=== PATIENT | female | born 1945 | race Caucasian/White ===

== ENCOUNTER 2016-07-31 07:39 | Day surgery (SDC) | payer MEDICARE ==
[~2016-07-31 07:39] MED LIST: ANTIVERT12.5 MG PO; ANTIVERT25 MG PO; ATENOLOL25 MG PO; AUGMENTIN500TAB PO; CETIRIZ/PSE1 TAB PO; CIPROFLOXACN250 M1 PO; CIPROFLOXACN250 MG PO; CLOTRIM/BETA EX; CYANOCOBALAM1000 MC1 IM; DIFLUCAN100 M1 PO; DIFLUCAN100 MG PO; DYAZIDE1 CAP; DYAZIDE1 CAP PO; ESOMEPRAZOLE MA40 MG PO; FLUARIX QUADRIV1 IN2 IM; FLUARIX QUADRIV1 INJ IM; FLUZONE SPLT1 M1 IM; GLIPIZIDE5 MG PO; IMDUR30 MG PO; ISOSORBIDE MONO30 MG PO; LORTAB 7.5 PO; LORTAB 7.5-3251 TAB PO; LORTAB 7.57.5 MG PO; MAXZIDE-2537.5 MG/TA PO; MECLIZINE25 MG PO; MELOXICAM7.5 MG PO; METFORMIN500 MG PO; MOBIC7.5 MG PO; MULTI VIT PO; NEXIUM40 M1 PO; PNEUMOVAX 23 IM; PRAVASTATIN SOD40 MG PO; PREVNAR 13 IM; PRILOSEC20 MG PO; REFRESH TEARS0.5 % OU; ROBITUSSIN AC10 ML PO; TAM75CAP PO; TESSALON PER100 MG PO; TIZANIDINE4 MG PO; TRAMADOL HCL50 MG PO; TYLENOL 500MG TAB PO; ZPAK PO
[2016-07-31 10:24] VITALS: BP 120/53
== END 2016-07-31 10:35 | disposition home or self-care (01) ==
LOC: ENDO 07:39 → ORM 10:40 → ENDO 11:00
PROVIDERS: ATTEND Internal Medicine Gastroenterology
PROC: 0DB48ZX Excision of Esophagogastric Junction, Via Natural or Artificial Opening Endoscopic, Diagnostic (ICD-10-PCS; principal; 2016-07-31)
PROC: 0DB68ZX Excision of Stomach, Via Natural or Artificial Opening Endoscopic, Diagnostic (ICD-10-PCS; 2016-07-31)
DX: K21.9 Gastro-esophageal reflux disease without esophagitis (principal); R07.9 Chest pain, unspecified; K29.70 Gastritis, unspecified, without bleeding; K31.7 Polyp of stomach and duodenum; E11.9 Type 2 diabetes mellitus without complications; E78.00 Pure hypercholesterolemia, unspecified

== ENCOUNTER 2017-12-14 12:10 | Inpatient (IN) | payer MEDICARE ==
[~2017-12-14] VITALS: Ht 152.4 cm; Wt 68.5 kg
[2017-12-14] MEDS ORDERED: FUROSEMIDE20 MG PO (13:59)
[2017-12-14] MEDS ORDERED: FOLIC ACID1 MG PO (14:00)
[2017-12-14] MEDS ORDERED: RHEUMATREX2.5 M1 PO (14:00)
[2017-12-14] MEDS ORDERED: RESTASIS0.05 % OU (14:01)
[2017-12-14] MEDS ORDERED: SYSTANE BAL OU (14:01)
[2017-12-14] MEDS ORDERED: METFORMIN500 MG PO (14:02)
[2017-12-14] MEDS ORDERED: ACTOS30 MG PO (14:02)
[2017-12-17] VITALS (8 sets, daily range): BP systolic 124–145; BP diastolic 50–64
--- NOTE | 2017-12-17 11:30 | NUR ---
PT BROUGHT TO FLOOR IN BED BY OR NURSES X2. NO SIGNS OF DISTRESS NOTED, RESP EVEN AND UNLABORED. PT ALERT AND ORIENTED X3, 02 2L NC, SCD'S ON, IVF INFUSING. DISCUSSED POC, PT HAS A SLING TO R SHOULDER DRESSING CDI. ICE PACK REMOVED AT 1120 WILL CONTINUE TO REPLACE 20MIN ON 20MIN OFF. ORIENTED TO ROOM AND CALL LIGHT. IS BROUGHT TO BEDSIDE. ASSESSMENT COMPLETED CALL LIGHT IN REACH,CONTINUE TO MONITOR.
--- NOTE | 2017-12-17 15:00 | NUR ---
PT RESTING IN BED, NO SIGNS OF DISTRESS NOTED, RESP EVEN AND UNLABORED. PT MEDICATED FOR PAIN, PT STATES SHE FEELS NO PAIN AT THIS TIME. CALL LIGHT IN REACH,CONTINUE TO MONITOR.
--- NOTE | 2017-12-17 16:36 | NUR ---
PT ASSISTED TO BATHROOM, PT AMBULATED WITH STEADY GAIT. ONCE BACK IN BED, PT EDUCATED AND DEMONSTRATED USE OF IS TOTAL VOLUME AT THIS TIME 750ML TOLERATED WELL. CALL LIGHT IN REACH,CONTINUE TO MONITOR.
--- NOTE | 2017-12-17 18:31 | NUR ---
ASSISTED PT TO BATHROOM, NO SIGNS OF DISTRESS NOTED, RESP EVEN AND UNLABORED. PT VOICES NO NEEDS OR COMPLAINTS AT THIS TIME. CALL LIGHT IN REACH,CONTINUE TO MONITOR.
--- NOTE | 2017-12-17 19:45 | NUR ---
PATIENT RESTING IN BED WITH RIGHT ARM IN SLING. HOB ELEVATED FOR COMFORT. AWAKE ALERT AND ORIENTEDX3. VISITOR AT BEDSIDE. PATIENT C/O RIGHT SHOULDER PAIN-MEDICATED WITH PERCOCET TABS 2. DRESSING TO RIGHT SHOULDER IS CDI. USE ICE PACKS TO AFFECTED AREA FOR 20MINUTES THEN OFF. CMS TO RIGHT FINGERS WNL-STATES THAT THE SENSATION IS RETURNING. SCD'S IN PLACE TO BLE. IVF D5LR PATENT AND INFUSING VIA LEFT FOREARM SITE AT 100CC/HR. SITE APPEARS HEALTHY. ENCOURAGED USE OF IS Q1H WHILE AWAKE FOR REPS OF 10-DEMONSTRATES ABILITY TO USE CORRECTLY. SAFETY PRECAUTIONS REINFORCED.CALL LIGHT IN REACH. WILL CONT TO MONITOR.
--- NOTE | 2017-12-17 21:30 | NUR ---
PATIENT STATES LITTLE OR NO RELIEF FROM PERCOCETS GIVEN EARLIER. MEDICATED FOR POST-0P PAIN TO RIGHT SHOULDER WITH DILAUDID 1MG IVP. PATIENT VOIDING QS YELLOW URINE. CALL LIGHT IN REACH. WILL CONT TO MONITOR.
[2017-12-18 00:24] VITALS: BP 123/55
--- NOTE | 2017-12-18 01:24 | NUR ---
PATIENT APPEARS SLEEPING AT THIS TIME. ANCEF HUNG ORDERED. CALL LIGHT IN REACH. WILL CONT TO MONITOR.
--- NOTE | 2017-12-18 04:06 | NUR ---
PATIENT MEDICATED FOR PAIN EARLIER WITH PERCOCET TABS 2 FOR PAOST-OP PAIN., APPEARS SLEEPING AT THIS TIME. CALL LIGHT IN REACH. WILL CONT TO MONITOR.
[2017-12-18 04:38] VITALS: BP 123/59
[2017-12-18 04:41] VITALS: BP 167/93
--- NOTE | 2017-12-18 05:10 | NUR ---
IV SITE CONVERTED TO SALINE LOCK-SITE REMAINS HEALTHY. CALL LIGHT IN REACH. WILL CONT TO MONITOR.
[2017-12-18 05:37] LABS: IMMATURE GRANULOCYTES 0.7 % (0.0-5.0); MEAN CELL VOLUME 92.3 fL CALC (80.0-100.0); MEAN CORPUSCULAR HGB 29.4 pG CALC (26.0-32.0); MEAN CORPUSCULAR HGB CONC 31.9 g/L CALC (32.0-36.0); NEUT# 9.98 thou/uL (2.00-7.15); RED BLOOD COUNT 3.91 mill/uL (4.20-5.60); RED CELL DISTRI WIDTH 14.8 % (11.5-15.5)
[2017-12-18 05:38] LABS: HEMATOCRIT 36.1 % (37.0-47.0); HEMATOCRIT 36.4 % (37.0-47.0); HEMOGLOBIN 11.5 g/dl (12.0-16.0); HEMOGLOBIN 11.6 g/dl (12.0-16.0)
[2017-12-18 05:44] LABS: ALKALINE PHOSPHATASE 58 u/l (38-126); ANION GAP 15 (6-22 (CALC)); BILIRUBIN, TOTAL 0.2 mg/dL (0.0-1.4); BUN 16 mg/dL (8-23); BUN/CREATININE RATIO 22 (12-20 (CALC)); CARBON DIOXIDE 24 mmol/l (22-30); CHLORIDE 107 mmol/l (95-108); CREATININE 0.7 mg/dL (0.5-1.0); GFR > 60 ML/MIN (>=60 (CALC)); GFR FOR AFR.AMER. > 60 ML/MIN (>=60 (CALC)); POTASSIUM 4.4 mmol/l (3.5-5.1); SGOT/AST 29 u/l (9-36); SGPT/ALT 36 u/l (11-66); SODIUM 141 mmol/l (137-146)
[2017-12-18 05:47] LABS: ALBUMIN 3.3 g/dL (3.2-5.0); TOTAL PROTEIN 5.6 g/dL (6.3-8.2)
--- NOTE | 2017-12-18 07:00 | NUR ---
BEDSIDE REPORT RECEIVED BY SHARA. PT IS RESTING IN BED WITH NO S/S OF DISTRESS NOTED. CALL LIGHT IN REACH.
[2017-12-18 07:32] VITALS: BP 122/57
--- NOTE | 2017-12-18 08:41 | NUR ---
MEDICATED PT WITH DILAUDID FOR PAIN. ASSESSMENT DONE . RESPS EVEN AND UNLABORED. ENCOURAGE PT TO USE INCENTIVE SPIROMETRY PT VERBALIZED UNDERSTANDING. SCD IN PLACE. RIGHT SHOULDER DRESSING DCDI. SAFETY PRECAUTIONS REINFORCED AND CALL LIGHT IN REACH.
--- NOTE | 2017-12-18 11:57 | NUR ---
PT HAS COLD PACK IN PLACE FOR RIGHT SHOULDER. PT STATED PAIN IS 3/10, BUT DENIES PAIN MEDICATION AT THIS TIME . ASSISTED PT TO THE RECLINER AND SETUP PT FOR LUNCH. PT SISTER IN ROOM. CALL LIGHT IN REACH.
[2017-12-18 15:46] VITALS: BP 131/58
--- NOTE | 2017-12-18 16:00 | NUR ---
PT IS RESTING IN BED WITH NO S/S OF DISTRESS NOTED. CALL LIGHT IN REACH.
--- NOTE | 2017-12-18 19:34 | NUR ---
PATIENT SITTING UP IN THE RECLINER WITH VISITOR AT BEDSIDE. AWAKE ALERT AND ORIENTEDX3. STATES THAT SHE IS STILL HAVING POST-OP PAIN AND THAT THE ZOFRAN DID HELP WITH NAUSEA. RIGHT SHOULDER DRESSING IS CDI AT THIS TIME. CMS TO RIGHT FINGERS WNL. SLING IS INTACT. SALINE LOCK TO LEFT FOREARM INTACT AND APPEARS HEALTHY AT THIS TIME. ENCOURAGED USE OF IS AND DEMONSTRATES PROPER USE OF THIS DEVICE. SAFETY PRECAUTIONS REINFORCED.CALL LIGHT IN REACH, WILL CNT TO MONITOR.
[2017-12-18 20:19] VITALS: BP 155/66
--- NOTE | 2017-12-18 21:21 | NUR ---
PATIENT ASKING FOR SLEEPING MEDS-CALL TO DR. GUO AND ORDERS RECIEVED. PATIENT MEDICATED FOR PAIN WITH PERCOCET FOR POST-OP PAIN TO RIGHT SHOULDER-6/10 ON PAIN SCALE AND WITH RESTORIL 15MG PO FOR SLEEP. PATIENT REFUSED MOM TONIGHT BUT DID TAKE SURFAK 1 CAP PO ORDERED. ABD IS SOFT WITH BS ACTIVE. CMS TO RIGHT FINGERS REMAINS WNL. SLING REMAINS IN PLACE TO RIGHT ARM. SAFETY PRECAUTIONS REINFORCED. CALL LIGHT IN REACH. WILL CONT TO MONITOR.
--- NOTE | 2017-12-18 23:00 | NUR ---
PATIENT STATES NO RELIEF FROM PERCOCET. MEDICATED FOR POST-OP RIGHT SHOULDER PAIN WITH DILAUDID 1MG IVP VIA LEFT FOREARM IV SITE. CALL LIGHT IN REACH. WILL CONT TO MONITOR.
[2017-12-19] VITALS (7 sets, daily range): BP systolic 109–176; BP diastolic 58–77
--- NOTE | 2017-12-19 03:55 | NUR ---
APPEARS SLEEPING AT THIS TIME. CALL LIGHT IN REACH. WILL CONT TO MONITOR.
[2017-12-19 04:56] LABS: HEMATOCRIT 35.9 % (37.0-47.0); HEMOGLOBIN 11.4 g/dl (12.0-16.0); IMMATURE GRANULOCYTES 0.5 % (0.0-5.0); MEAN CELL VOLUME 91.8 fL CALC (80.0-100.0); MEAN CORPUSCULAR HGB 29.2 pG CALC (26.0-32.0); MEAN CORPUSCULAR HGB CONC 31.8 g/L CALC (32.0-36.0); NEUT# 6.13 thou/uL (2.00-7.15); RED BLOOD COUNT 3.91 mill/uL (4.20-5.60); RED CELL DISTRI WIDTH 15.2 % (11.5-15.5)
[2017-12-19 05:19] LABS: ANION GAP 13 (6-22 (CALC)); BUN 14 mg/dL (8-23); BUN/CREATININE RATIO 21 (12-20 (CALC)); CARBON DIOXIDE 28 mmol/l (22-30); CHLORIDE 103 mmol/l (95-108); CREATININE 0.7 mg/dL (0.5-1.0); GFR > 60 ML/MIN (>=60 (CALC)); GFR FOR AFR.AMER. > 60 ML/MIN (>=60 (CALC)); POTASSIUM 3.7 mmol/l (3.5-5.1); SODIUM 139 mmol/l (137-146)
--- NOTE | 2017-12-19 06:07 | NUR ---
PATIENT RESTING IN BED WITH HOB ELEVATED. RIGHT ARM REMAINS IN SLING. CMS TO RIGHT FINGERS WNL. PATIENT C/O POST-OP RIGHT SHOULDER PAIN-MEDICATED WITH PERCOCET 10/325MG TABS 2 PO. CALL LIGHT IN REACH. WILL CONT TO MONITOR.
--- NOTE | 2017-12-19 07:04 | NUR ---
REPORT RECEIVED BY SHARA. PT IS SLEEPING IN BED WITH NO S/S OF DISTRESS NOTED. CALL LIGHT IN REACH.
--- NOTE | 2017-12-19 08:05 | NUR ---
ASSISTED PT TO THE RECLINER AND PT TOLERATED WELL. ASSESSMENT DONE . RESPS EVEN AND UNLABORED. PT STATED PAIN RIGHT SHOULDER 3/10 BUT DENIES PAIN MEDS AT THIS TIME. SLING IN PLACE FOR RIGHT SHOULDER AND DRESSING IS CDI. #20 LFA. SAFETY PRECAUTIONS REINFORCED AND CALL LIGHT IN REACH.
--- NOTE | 2017-12-19 12:05 | NUR ---
PT IS SITTING IN RECLINER . MEDICATED PT WITH PERCOCET FOR PAIN SEE EMAR. PT DENIES ANY OTHER NEEDS AT THIS TIME. CALL LIGHT IN REACH. FAMILY MEMBER IN ROOM.
--- NOTE | 2017-12-19 16:00 | NUR ---
PT IS RESTING IN BED. PT DENIES NEEDS AT THIS TIME. CALL LIGHT IN REACH.
--- NOTE | 2017-12-19 19:10 | NUR ---
PT IS IN BED WATCHING TV WITH LIGHTS OUT. NO S/S OF DISTRESS NOTED AT THIS TIME. CALL LIGHT AT BEDSIDE.
[2017-12-20 00:24] VITALS: BP 148/66
--- NOTE | 2017-12-20 00:30 | NUR ---
PT ASSISTED TO RESTROOM AND REPOSITIONED IN BED. PT HAS BEEN MEDICATED ORDERS PROVIDE AND ASSISTED W/PO FLUIDS. DENIES ANY OTHER NEEDS AT THIS TIME. CALL LIGHT W/IN REACH
--- NOTE | 2017-12-20 04:06 | NUR ---
PT BP ELEVATED, NOTIFIED /ORDERS RECEIVED. WILL CONTINUE TO MONITOR AND MEDICATE NEEDED AND ORDERS PROVIDE. PT DENIES ANY CHEST OR HEAD PAIN AND HAS BEEN MEDICATED FOR SHOULDER PAIN OF RIGHT SIDE. SURGICAL INCISION IS CDI AT THIS TIME AND RIGHT ARM IS IN SLING. PT AMBULATED TO RESTROOM AND BACK TO BED. FULL ASSESSMENT COMPLETED. LUNG SOUNDS WERE DIMINISHED, DISCUSSED IS USE TO PT. SCD'S ARE IN PLACE AND RUNNING.
[2017-12-20 05:12] VITALS: BP 146/65
--- NOTE | 2017-12-20 06:53 | NUR ---
PT MEDICATED FOR PAIN 6/10 IN R SHOULDER.
[2017-12-20 07:59] LABS: HEMATOCRIT 40.9 % (37.0-47.0); HEMOGLOBIN 13.2 g/dl (12.0-16.0); IMMATURE GRANULOCYTES 0.4 % (0.0-5.0); MEAN CELL VOLUME 91.5 fL CALC (80.0-100.0); MEAN CORPUSCULAR HGB 29.5 pG CALC (26.0-32.0); MEAN CORPUSCULAR HGB CONC 32.3 g/L CALC (32.0-36.0); NEUT# 7.63 thou/uL (2.00-7.15); RED BLOOD COUNT 4.47 mill/uL (4.20-5.60); RED CELL DISTRI WIDTH 14.8 % (11.5-15.5)
[2017-12-20 08:27] LABS: ANION GAP 11 (6-22 (CALC)); BUN 11 mg/dL (8-23); BUN/CREATININE RATIO 18 (12-20 (CALC)); CARBON DIOXIDE 32 mmol/l (22-30); CHLORIDE 100 mmol/l (95-108); CREATININE 0.6 mg/dL (0.5-1.0); GFR > 60 ML/MIN (>=60 (CALC)); GFR FOR AFR.AMER. > 60 ML/MIN (>=60 (CALC)); POTASSIUM 3.9 mmol/l (3.5-5.1); SODIUM 138 mmol/l (137-146)
[2017-12-20 08:30] VITALS: BP 157/56
--- NOTE | 2017-12-20 08:30 | NUR ---
ASSESSMENT IS COMPLETED: IV SITE IS FREE FROM REDNESS OR EDEMA. HR IS REG, PULSES ARE STRONG X4, ABD IS SOFT WITH ACTIVE BS. BREATH SOUNDS ARE CLEAR, BILATERALLY, NO C/O SOB, R ARM DRESSING IS CDI. SLING IN PLACE. IN TO VISIT WITH PT. WILL DISCHARGE TODAY.
[2017-12-20 09:49] VITALS: BP 157/56
--- NOTE | 2017-12-20 12:42 | NUR ---
DISCHARGE INSTRUCTIONS GIVEN TO PT AND FAMILY. NO DISTRESS NOTED. WILL GO HOME WITH A GOWN. IV SITE IS DISCONTINUED CATHETER INTACT, NO REDNESS OR EDEMA. CONTINUE TO OSBERVE AND MONITOR. Discharge instructions given. Patient verbalizes understanding of same. Discharged in stable condition via Wheelchair to Home with family. All belongings sent with pt.[facility].
== END 2017-12-20 12:44 | DRG 483 ==
LOC: MS2 12-17 06:29
PROVIDERS: ADMIT Internal Medicine Geriatric Medicine
PROC: 0RRJ00Z Replacement of Right Shoulder Joint with Reverse Ball and Socket Synthetic Substitute, Open Approach (ICD-10-PCS; principal; 2017-12-17)
PROC: 0LS30ZZ Reposition Right Upper Arm Tendon, Open Approach (ICD-10-PCS; 2017-12-17)
DX: M19.011 Primary osteoarthritis, right shoulder (principal); M75.121 Complete rotator cuff tear or rupture of right shoulder, not specified as traumatic; M75.21 Bicipital tendinitis, right shoulder; E11.9 Type 2 diabetes mellitus without complications; I10 Essential (primary) hypertension; I25.10 Atherosclerotic heart disease of native coronary artery without angina pectoris; E78.5 Hyperlipidemia, unspecified; K21.9 Gastro-esophageal reflux disease without esophagitis; E03.9 Hypothyroidism, unspecified; F41.1 Generalized anxiety disorder; K27.9 Peptic ulcer, site unspecified, unspecified as acute or chronic, without hemorrhage or perforation; K59.00 Constipation, unspecified

== ENCOUNTER → 2018-06-16 | Outpatient (REF) | payer MEDICARE ==
[~2018-06-16] MED LIST changes: +ACTOS30 MG PO; +FOLIC ACID1 MG PO; +FUROSEMIDE20 MG PO; +RESTASIS0.05 % OU; +RHEUMATREX2.5 M1 PO; +SYSTANE BAL OU
[2018-06-16 14:30] LABS: ALBUMIN 4.6 g/dL (3.2-5.0); ALKALINE PHOSPHATASE 86 u/l (38-126); ANION GAP 15 (6-22 (CALC)); BILIRUBIN, TOTAL 0.6 mg/dL (0.0-1.4); BUN 17 mg/dL (8-23); BUN/CREATININE RATIO 28 (12-20 (CALC)); CARBON DIOXIDE 28 mmol/l (22-30); CHLORIDE 103 mmol/l (95-108); CREATININE 0.6 mg/dL (0.5-1.0); GFR > 60 ML/MIN (>=60 (CALC)); GFR FOR AFR.AMER. > 60 ML/MIN (>=60 (CALC)); POTASSIUM 4.6 mmol/l (3.5-5.1); SGOT/AST 33 u/l (9-36); SODIUM 142 mmol/l (137-146); TOTAL PROTEIN 7.2 g/dL (6.3-8.2)
== END | disposition home or self-care (01) ==
LOC: LAB 13:13
PROVIDERS: ATTEND Internal Medicine Gastroenterology
DX: K76.89 Other specified diseases of liver (principal); K21.9 Gastro-esophageal reflux disease without esophagitis; K57.90 Diverticulosis of intestine, part unspecified, without perforation or abscess without bleeding; R93.5 Abnormal findings on diagnostic imaging of other abdominal regions, including retroperitoneum

== ENCOUNTER → 2018-06-17 | Outpatient (REF) | payer MEDICARE | END | disposition home or self-care (01) | LOC: ULTRASND 07:25 | PROVIDERS: ATTEND Internal Medicine Gastroenterology | DX: K76.89 Other specified diseases of liver (principal); K21.9 Gastro-esophageal reflux disease without esophagitis; K57.90 Diverticulosis of intestine, part unspecified, without perforation or abscess without bleeding ==

== ENCOUNTER → 2018-06-25 | Outpatient (REF) | payer MEDICARE ==
[2018-06-25 08:43] LABS: HEMATOCRIT 45.1 % (37.0-47.0); IMMATURE GRANULOCYTES 0.4 % (0.0-5.0); MEAN CELL VOLUME 91.9 fL CALC (80.0-100.0); MEAN CORPUSCULAR HGB 28.5 pG CALC (26.0-32.0); NEUT# 3.06 thou/uL (2.00-7.15); RED BLOOD COUNT 4.91 mill/uL (4.20-5.60); RED CELL DISTRI WIDTH 15.5 % (11.5-15.5)
[2018-06-25 08:57] LABS: ALBUMIN 4.4 g/dL (3.2-5.0); ALKALINE PHOSPHATASE 82 u/l (38-126); ANION GAP 16 (6-22 (CALC)); BILIRUBIN, TOTAL 0.7 mg/dL (0.0-1.4); BUN 18 mg/dL (8-23); BUN/CREATININE RATIO 30 (12-20 (CALC)); CALCULATED LDLCHOLESTEROL 84 mg/dL (62-129 (CALC)); CARBON DIOXIDE 25 mmol/l (22-30); CHLORIDE 105 mmol/l (95-108); CHOLESTEROL HDL RATIO 2.1 (<4.4 (CALC)); CREATININE 0.6 mg/dL (0.5-1.0); GFR > 60 ML/MIN (>=60 (CALC)); GFR FOR AFR.AMER. > 60 ML/MIN (>=60 (CALC)); HDL CHOLESTEROL 99 mg/dL (>=40); POTASSIUM 3.8 mmol/l (3.5-5.1); SGOT/AST 25 u/l (9-36); SODIUM 142 mmol/l (137-146); TOTAL CHOLESTEROL 204 mg/dl (0-199); TOTAL PROTEIN 7.2 g/dL (6.3-8.2); TRIGLYCERIDES REFLEX TO dLDL 103 mg/dl (30-149); VLDL CHOLESTROL 21 mg/dl (0-48 (CALC))
== END | disposition home or self-care (01) ==
LOC: LAB 07:46
PROVIDERS: ATTEND Internal Medicine Geriatric Medicine
DX: I10 Essential (primary) hypertension (principal); E78.5 Hyperlipidemia, unspecified; E11.9 Type 2 diabetes mellitus without complications

== ENCOUNTER → 2018-07-01 | Outpatient (REF) | payer MEDICARE | END | disposition home or self-care (01) | LOC: LAB 12:03 | PROVIDERS: ATTEND Nurse Practitioner Family | DX: E11.9 Type 2 diabetes mellitus without complications (principal); I10 Essential (primary) hypertension; R53.81 Other malaise ==

== ENCOUNTER 2018-12-26 13:18 | Emergency (ER) | payer MEDICARE ==
[~2018-12-26] VITALS: Ht 152.4 cm; Wt 65.0 kg
[2018-12-26 14:18] LABS: ALBUMIN 4.6 g/dL (3.2-5.0); ALKALINE PHOSPHATASE 89 u/l (38-126); ANION GAP 14 (6-22 (CALC)); BILIRUBIN, TOTAL 0.6 mg/dL (0.0-1.4); BUN 18 mg/dL (8-23); BUN/CREATININE RATIO 28 (12-20 (CALC)); CARBON DIOXIDE 28 mmol/l (22-30); CHLORIDE 104 mmol/l (95-108); CREATININE 0.7 mg/dL (0.5-1.0); GFR > 60 ML/MIN (>=60 (CALC)); GFR FOR AFR.AMER. > 60 ML/MIN (>=60 (CALC)); POTASSIUM 4.1 mmol/l (3.5-5.1); SGOT/AST 24 u/l (9-36); SODIUM 141 mmol/l (137-146); TOTAL PROTEIN 7.4 g/dL (6.3-8.2)
[2018-12-26 14:30] LABS: MYOGLOBIN 33 ng/mL (0 - 62)
[2018-12-26] MEDS ORDERED: VITAMIN C500 MG PO (14:31)
[2018-12-26] MEDS ORDERED: VITAMIN D1000 UNI1 PO (14:32)
[2018-12-26] MEDS ORDERED: FISH OIL1200 M2 PO (14:32)
[2018-12-26 14:42] LABS: HEMATOCRIT 42.9 % (37.0-47.0); HEMOGLOBIN 13.1 g/dl (12.0-16.0); IMMATURE GRANULOCYTES 0.3 % (0.0-5.0); MEAN CELL VOLUME 88.3 fL CALC (80.0-100.0); MEAN CORPUSCULAR HGB CONC 30.5 g/L CALC (32.0-36.0); NEUT# 4.81 thou/uL (2.00-7.15); RED BLOOD COUNT 4.86 mill/uL (4.20-5.60); RED CELL DISTRI WIDTH 16.6 % (11.5-15.5)
[2018-12-26 15:02] LABS: URINE BILIRUBIN - DIPSTICK NEGATIVE (NEGATIVE); URINE BLOOD DIPSTICK SMALL (NEGATIVE); URINE COLOR YELLOW; URINE GLUCOSE - DIPSTICK NEGATIVE (NEGATIVE); URINE KETONE NEGATIVE (NEGATIVE); URINE LEUK ESTERASE NEGATIVE (NEGATIVE); URINE NITRITE - DIPSTICK NEGATIVE (Negative); URINE PROTEIN - DIPSTICK NEGATIVE (NEG-TRACE); URINE UROBILINOGEN - DIPSTICK 0.2 E.U./dL (0.2)
[2018-12-26 15:11] LABS: URINE SQUAMOUS EPITHELIAL CELL FEW EPI/hpf (0-FEW); URINE WBC 0-2 WBC/hpf (0-5)
[2018-12-26 15:23] VITALS: BP 162/67
== END 2018-12-26 15:22 | disposition left against medical advice (07) ==
LOC: ED 13:18 → ED-I 14:58 → ED 15:22
PROVIDERS: Emergency Medicine
DX: R07.9 Chest pain, unspecified (principal); E11.9 Type 2 diabetes mellitus without complications; Z79.84 Long term (current) use of oral hypoglycemic drugs; Z91.19 Patient's noncompliance with other medical treatment and regimen; R06.02 Shortness of breath

== ENCOUNTER 2019-03-03 07:10 | Day surgery (SDC) | payer MEDICARE ==
[~2019-03-03 07:10] MED LIST changes: +FISH OIL1200 M2 PO; +HYDROCO/APAP1 T13 PO; +VITAMIN C500 MG PO; +VITAMIN D1000 UNI1 PO
[2019-03-03 10:29] VITALS: BP 159/70
== END 2019-03-03 10:27 | disposition home or self-care (01) ==
LOC: ENDO 07:10 → ORM 10:00 → ENDO 10:00
PROVIDERS: ATTEND Internal Medicine Gastroenterology
PROC: 0DBK8ZX Excision of Ascending Colon, Via Natural or Artificial Opening Endoscopic, Diagnostic (ICD-10-PCS; principal; 2019-03-03)
DX: K57.30 Diverticulosis of large intestine without perforation or abscess without bleeding (principal); K63.5 Polyp of colon; K64.4 Residual hemorrhoidal skin tags; K76.89 Other specified diseases of liver; K21.9 Gastro-esophageal reflux disease without esophagitis; K29.70 Gastritis, unspecified, without bleeding; K31.7 Polyp of stomach and duodenum; E11.9 Type 2 diabetes mellitus without complications; Z86.010 Personal history of colon polyps; Z79.84 Long term (current) use of oral hypoglycemic drugs

== ENCOUNTER 2019-09-19 15:00 | Emergency (ER) | payer MEDICARE ==
[~2019-09-19 15:00] MED LIST changes: -SYSTANE BAL OU; +SYSTANE ULTRA OU; -TYLENOL 500MG TAB PO; +TYLENOL500 MG PO
[2019-09-19] MEDS ORDERED: METFORMIN500 M2 PO (15:28)
[2019-09-19 15:29] LABS: HEMOGLOBIN 12.3 g/dl (12.0-16.0); IMMATURE GRANULOCYTES 0.4 % (0.0-5.0); MEAN CELL VOLUME 84.9 fL CALC (80.0-100.0); MEAN CORPUSCULAR HGB 25.5 pG CALC (26.0-32.0); NEUT# 4.77 thou/uL (2.00-7.15); RED BLOOD COUNT 4.83 mill/uL (4.20-5.60); RED CELL DISTRI WIDTH 16.2 % (11.5-15.5)
[2019-09-19] MEDS ORDERED: OMEPRAZOLE DR20 MG PO (15:29)
[2019-09-19] MEDS ORDERED: PRAVASTATIN40 MG PO (15:30)
[2019-09-19] MEDS ORDERED: MECLIZINE12.5 M1 PO (15:31)
[2019-09-19] MEDS ORDERED: HYDROCODONE/ACE1 TAB PO (15:32)
[2019-09-19] MEDS ORDERED: VITAMI16 PO (15:36)
[2019-09-19] MEDS ORDERED: VITAMIN D1000 UNI2 PO (15:37)
[2019-09-19 15:42] LABS: ALBUMIN 4.2 g/dL (3.2-5.0); ALKALINE PHOSPHATASE 82 u/l (38-126); ANION GAP 13 (6-22 (CALC)); BILIRUBIN, TOTAL 0.6 mg/dL (0.0-1.4); BUN 21 mg/dL (8-23); BUN/CREATININE RATIO 28 (12-20 (CALC)); CHLORIDE 108 mmol/l (95-108); CREATININE 0.7 mg/dL (0.5-1.0); GFR > 60 ML/MIN (>=60 (CALC)); GFR FOR AFR.AMER. > 60 ML/MIN (>=60 (CALC)); LIPASE 70 u/l (23-300); POTASSIUM 3.9 mmol/l (3.5-5.1); SGOT/AST 28 u/l (9-36); SODIUM 138 mmol/l (137-146); TOTAL PROTEIN 7.6 g/dL (6.3-8.2)
[2019-09-19 15:59] LABS: CARBON DIOXIDE 21 mmol/l (22-30)
[2019-09-19 16:13] VITALS: BP 155/72
== END 2019-09-19 16:14 | disposition short-term general hospital (02) ==
LOC: ED 15:00
PROVIDERS: Family Medicine
DX: I44.1 Atrioventricular block, second degree (principal); E11.9 Type 2 diabetes mellitus without complications; I10 Essential (primary) hypertension; Z79.84 Long term (current) use of oral hypoglycemic drugs

== ENCOUNTER 2022-12-28 07:17 | Emergency (ER) | payer MEDICARE ==
[~2022-12-28] VITALS: Ht 152.4 cm; Wt 56.2 kg
[2022-12-28] VITALS (8 sets, daily range): BP systolic 135–160; BP diastolic 62–84
[~2022-12-28 07:17] MED LIST changes: +HYDROCODONE/ACE1 TAB PO; +MECLIZINE12.5 M1 PO; +METFORMIN500 M2 PO; +OMEPRAZOLE DR20 MG PO; +PRAVASTATIN40 MG PO; +VITAMI16 PO; +VITAMIN D1000 UNI2 PO
[2022-12-28] MEDS ORDERED: MEDROL DOSEPAK4 MG PO (09:34)
[2022-12-28] MEDS ORDERED: CORICIDIN HBP DAY & PO (09:34)
== END 2022-12-28 09:43 | disposition home or self-care (01) ==
LOC: ED 07:17
DX: U07.1 COVID-19 (principal); R52 Pain, unspecified; R05.9 Cough, unspecified; R09.81 Nasal congestion; J02.9 Acute pharyngitis, unspecified; E11.9 Type 2 diabetes mellitus without complications; I48.91 Unspecified atrial fibrillation; K21.9 Gastro-esophageal reflux disease without esophagitis; Z95.0 Presence of cardiac pacemaker; Z79.84 Long term (current) use of oral hypoglycemic drugs

== ENCOUNTER 2023-12-15 18:28 | Emergency (ER) | payer MEDICARE ==
[2023-12-15] VITALS (14 sets, daily range): BP systolic 122–166; BP diastolic 59–77
[~2023-12-15] VITALS: Ht 152.4 cm; Wt 53.9 kg
[~2023-12-15 18:28] MED LIST changes: +CORICIDIN HBP DAY & PO; +MEDROL DOSEPAK4 MG PO
[2023-12-15] MEDS ORDERED: KETOROLAC TROMETHAMINE 15 MG/ML SDV IV ONE (19:10)
[2023-12-15] MEDS ORDERED: METHOCARBAMOL 1,000 MG/10 ML VIAL IV ONE (19:10)
[2023-12-15] MEDS ORDERED: ONDANSETRON HCl 4 MG/2 ML SDV IV ONE (19:10)
[2023-12-15] MEDS ORDERED: MORPHINE SULFATE 4 MG/ML VIAL IV ONE (19:10)
[2023-12-15 19:30] LABS: BASO% 0.3 % (0-3); EOS% 1.6 % (0-8); HEMATOCRIT 43.4 % (37.0-47.0); HEMOGLOBIN 13.3 g/dl (12.0-16.0); IMMATURE GRANULOCYTES 0.1 % (0.0-5.0); LYMPH% 25.4 % (15-41); MEAN CELL VOLUME 93.5 fL CALC (80.0-100.0); MEAN CORPUSCULAR HGB 28.7 pG CALC (26.0-32.0); MEAN CORPUSCULAR HGB CONC 30.6 g/dL CAL (32.0-36.0); MONO% 7.4 % (2-13); NEUT# 4.83 thou/uL (2.00-7.15); NEUT% 65.2 % (42-76); RED BLOOD COUNT 4.64 mill/uL (4.20-5.60); RED CELL DISTRI WIDTH 15.7 % (11.5-15.5)
[2023-12-15 19:59] LABS: ALBUMIN 4.2 g/dL (3.2-5.0); BILIRUBIN, TOTAL 1.2 mg/dL (0.02-1.3); CREATININE 0.6 mg/dL (0.5-1.0); POTASSIUM 4.1 mmol/l (3.5-5.1); TOTAL PROTEIN 6.8 g/dL (6.3-8.2)
[2023-12-15] MEDS ORDERED: HYDROCO/APAP1 TA9 PO ×2 (22:04→22:06)
[2023-12-15] MEDS ORDERED: MEDDOSEPAK PO (22:04)
[2023-12-15] MEDS ORDERED: ZOFRAN4 MG/TAB PO (22:04)
== END 2023-12-15 22:15 | disposition home or self-care (01) ==
LOC: ED 18:28
PROVIDERS: Nurse Practitioner
DX: M54.2 Cervicalgia (principal); G89.29 Other chronic pain; E11.9 Type 2 diabetes mellitus without complications; I48.91 Unspecified atrial fibrillation; Z87.442 Personal history of urinary calculi; Z95.0 Presence of cardiac pacemaker; Z96.611 Presence of right artificial shoulder joint; Z79.84 Long term (current) use of oral hypoglycemic drugs

== ENCOUNTER 2024-06-07 11:36 | Observation (INO) | payer MEDICARE ==
[~2024-06-07] VITALS: Ht 152.4 cm; Wt 52.2 kg
[2024-06-07] VITALS (18 sets, daily range): BP systolic 99–142; BP diastolic 48–67
[~2024-06-07 11:36] MED LIST changes: +HYDROCO/APAP1 TA9 PO; +MEDDOSEPAK PO; +ZOFRAN4 MG/TAB PO
--- NOTE | 2024-06-07 11:40 | NUR ---
PATIENT TO ROOM 13 VIA EMS
[2024-06-07] MEDS ORDERED: Diph, Acellular Pertussis, Tet 0.5 ML/VIAL (Tdap) SDV IM ONE (11:45)
[2024-06-07 12:21] LABS: BASO% 0.6 % (0-3); EOS% 1.3 % (0-8); IMMATURE GRANULOCYTES 0.3 % (0.0-5.0); LYMPH% 18.9 % (15-41); MEAN CELL VOLUME 91.5 fL CALC (80.0-100.0); MEAN CORPUSCULAR HGB 27.8 pG CALC (26.0-32.0); MEAN CORPUSCULAR HGB CONC 30.4 g/dL CAL (32.0-36.0); MONO% 5.8 % (2-13); NEUT# 4.65 thou/uL (2.00-7.15); NEUT% 73.1 % (42-76); RED BLOOD COUNT 5.03 mill/uL (4.20-5.60); RED CELL DISTRI WIDTH 16.1 % (11.5-15.5)
[2024-06-07 12:30] LABS: PROTHROMBIN TIME 30.2 SECONDS (9.0-12.5)
[2024-06-07 12:35] LABS: ALBUMIN 4.2 g/dL (3.2-5.0); ALKALINE PHOSPHATASE 85 u/l (38-126); ANION GAP 13 (6-22 (CALC)); BILIRUBIN, TOTAL 0.9 mg/dL (0.02-1.3); BUN 15 mg/dL (8-23); BUN/CREATININE RATIO 21 (12-20 (CALC)); CARBON DIOXIDE 28 mmol/l (22-30); CHLORIDE 103 mmol/l (95-108); CREATININE 0.7 mg/dL (0.5-1.0); ESTIMATED GFR 88 ML/MIN (>=90 (CALC)); POTASSIUM 4.1 mmol/l (3.5-5.1); SGOT/AST 27 u/l (9-36); SODIUM 140 mmol/l (137-146); TOTAL PROTEIN 6.6 g/dL (6.3-8.2)
--- NOTE | 2024-06-07 12:42 | NUR ---
Reassessment of patient completed. No distress noted.
--- NOTE | 2024-06-07 13:18 | NUR ---
ROMEO ASSISTED TO RESTROOM DENIES ANY OTHER NEEDS CURRENTLY
[2024-06-07] MEDS ORDERED: ACETAMINOPHEN 325 MG/TAB PO PRN (13:40)
[2024-06-07] MEDS ORDERED: MAGNESIUM HYDROXIDE 30 ML UDC PO PRN (13:40)
[2024-06-07] MEDS ORDERED: CARVEDILOL12.5 MG PO (13:48)
[2024-06-07] MEDS ORDERED: RESTORIL15 MG PO (13:49)
[2024-06-07] MEDS ORDERED: LOSARTAN POTASS50 MG PO (13:49)
[2024-06-07] MEDS ORDERED: WARFARIN SODIUM5 MG PO (13:49)
[2024-06-07] MEDS ORDERED: FOLIC ACID1 M1 (13:50)
[2024-06-07] MEDS ORDERED: JARDIANCE25 MG (13:51)
--- NOTE | 2024-06-07 14:42 | NUR ---
PATIENT CARE REPORT CALLED TO LIA HUGGINS
--- NOTE | 2024-06-07 15:00 | NUR ---
PT ARRIVED TO THE UNIT VIA WC, PT IS A&O X3, PT AMBULATED FROM THE WC TO THE BEDSIDE SCALE AND TO THE BED WITH A STRONG STEADY GAIT, PUPILS ARE PERRL, RESP. EVEN AND UNLABORED, LUNG SOUNDS ARE CLEAR, ABD DISTENDED AND SOFT WITH ACTIVE BOWEL SOUNDS, 20G R AC IV SL, STRONG RADIAL AND PEDAL PULSES, PT ORIENTED TO THE ROOM AND CALL MATT SYSTEM, SAFETY MEASURES REINFORCED, CALL MATT WITHIN REACH
[2024-06-07] MEDS ORDERED: DEXTROSE 250 ML IV PRN (15:10)
[2024-06-07] MEDS ORDERED: INSULIN LISPRO 100 UNITS/ML ML SC SCH (17:00)
[2024-06-07] MEDS ORDERED: OXYCOD-APAP1 TA1 PO (19:26)
--- NOTE | 2024-06-07 20:00 | NUR ---
RECEIVED REPORT FROM NURSE NATE, PATIENT SITTING IN CHAIR, FAMILY IN ROOM, REQUESTING TO RESUME HER PAIN MEDICATION AND SLEEP AID, ROMEO ALERT ORIENTED IV PATENT FLUSHES WELL RAC G 20, ON TELEMETRY, C/O PAIN ON RT SHOULDER PATIENT BREATHING UNLABORED CALLL LIGHT WITHIN REACHED.
[2024-06-07] MEDS ORDERED: LOSARTAN Potassium 50 MG/TAB PO SCH (21:00)
[2024-06-07] MEDS ORDERED: CARVEDILOL 6.25 MG/TAB PO SCH (21:00)
[2024-06-07] MEDS ORDERED: TEMAZEPAM 15 MG/CAP PO SCH (21:00)
[2024-06-07] MEDS ORDERED: PANTOPRAZOLE SODIUM Sesquihydr 40 MG/TAB PO SCH (21:00)
[2024-06-07] MEDS ORDERED: HYDROcodone 5 MG/Acetaminophen 325 MG/COMBO PO PRN (21:10)
[2024-06-08] VITALS: BP 114/53
--- NOTE | 2024-06-08 | NUR ---
PATIENT RESTING IN BED, EYES CLOSED, BREATHING EVEN UNLABORED CALL LIGHT WITHIN REACHED.
[2024-06-08 04:36] VITALS: BP 104/54
[2024-06-08 04:40] LABS: BASO% 0.3 % (0-3); HEMOGLOBIN 12.4 g/dl (12.0-16.0); IMMATURE GRANULOCYTES 0.2 % (0.0-5.0); LYMPH% 37.7 % (15-41); MEAN CELL VOLUME 90.4 fL CALC (80.0-100.0); MEAN CORPUSCULAR HGB 28.4 pG CALC (26.0-32.0); MEAN CORPUSCULAR HGB CONC 31.4 g/dL CAL (32.0-36.0); MONO% 8.6 % (2-13); NEUT# 3.02 thou/uL (2.00-7.15); NEUT% 51.2 % (42-76); RED BLOOD COUNT 4.37 mill/uL (4.20-5.60); RED CELL DISTRI WIDTH 15.9 % (11.5-15.5)
[2024-06-08 04:41] LABS: HEMATOCRIT 39.5 % (37.0-47.0)
[2024-06-08 04:58] LABS: ALBUMIN 3.4 g/dL (3.2-5.0); CREATININE 0.6 mg/dL (0.5-1.0); MAGNESIUM 1.6 mg/dL (1.6-2.3); POTASSIUM 3.6 mmol/l (3.5-5.1); TOTAL PROTEIN 5.6 g/dL (6.3-8.2)
[2024-06-08 05:10] LABS: INTERNATIONAL NORMALIZED RATIO 2.4 RATIO (0.7-1.3)
[2024-06-08 05:41] LABS: PROTHROMBIN TIME 24.2 SECONDS (9.0-12.5)
--- NOTE | 2024-06-08 05:41 | NUR ---
PATINET AWAKE, NOT IN DISTRESS, BREATHING EVEN UNLABORED CALL LIGHT WITHIN REACHED.
[2024-06-08 05:56] VITALS: BP 104/54
[2024-06-08 07:06] VITALS: BP 97/52
--- NOTE | 2024-06-08 07:15 | NUR ---
PT SITTING UP IN BED AWAKE WATCHING TV, PT IS A&O X3, PUPILS PERRL, RESP. EVEN AND UNLABORED, LUNG SOUNDS ARE CLEAR, ABD DISTENDED AND SOFT WITH ACTIVE BOWEL SOUNDS, NORMAL S1 S2 HEART SOUNDS, TELE MONITOR IN PLACE, STRONG RADIAL AND PEDAL PULSES, 20G RAC IV SL, PT ADMITS TO HAVING ONLY R SHOULDER PAIN, SAFETY MEASURES REINFORCED, CALL MATT WITHIN REACH
[2024-06-08 10:38] VITALS: BP 109/54
--- NOTE | 2024-06-08 11:35 | NUR ---
Discharge instructions given. Patient verbalizes understanding of same. Discharged in stable condition via Wheelchair to Home with family. All belongings sent with pt.
== END 2024-06-08 11:36 ==
LOC: ED 11:36 → ED-I 12:02 → MS2 13:27 → ED 13:27 → MS2 06-08 11:36
PROVIDERS: Family Medicine; Nurse Practitioner Family; ADMIT Internal Medicine; ATTEND Internal Medicine
DX: S01.81XA Laceration without foreign body of other part of head, initial encounter (principal); S60.221A Contusion of right hand, initial encounter; M54.2 Cervicalgia; M25.511 Pain in right shoulder; I48.91 Unspecified atrial fibrillation; E11.9 Type 2 diabetes mellitus without complications; K21.9 Gastro-esophageal reflux disease without esophagitis; W01.0XXA Fall on same level from slipping, tripping and stumbling without subsequent striking against object, initial encounter; Y92.009 Unspecified place in unspecified non-institutional (private) residence as the place of occurrence of the external cause; Z79.84 Long term (current) use of oral hypoglycemic drugs; Z79.01 Long term (current) use of anticoagulants; Z95.0 Presence of cardiac pacemaker; Z87.11 Personal history of peptic ulcer disease
CPT/HCPCS: 90715; G0378; J1815